=== PATIENT | male | born 1940 | race Caucasian/White ===

== ENCOUNTER 2016-12-31 15:41 | Inpatient (IN) | payer OTHER ==
[~2016-12-31] VITALS: Ht 170.2 cm; Wt 84.9 kg
[~2016-12-31 15:41] MED LIST: ACCUPRIL20 MG PO; ALBUTEROL IN200 PUFF INH; ATROVENT2.5 ML NEB; AUGMENTIN 875-1 EACH PO; AZELASTINE205.5 MCG/ NS; CEFDINIR300 MG PO; CHILDRENS CHEWA81 MG PO; CLARITIN10 MG PO; MILLIPRED5 MG PO; NEURONTIN100 MG PO; NORVASC10 MG PO; PLETAL100 MG PO; PRILOSEC20 MG PO; PRILOSEC40 MG PO; PRINIVIL20 MG PO; PROZAC40 MG PO; SINGULAIR10 MG PO; SPIRIVA18 MCG INH; SYMBICORT 16010.2 GM INH; THEO-24200 MG PO; THEOPHYLLINE C300 MG PO; TYLENOL325 M1 PO; VALIUM5 MG PO; XOPENEX0.63 MG/3 NEB; ZITHROMAX250 MG PO; ZOCOR10 MG PO; ZYRTEC10 MG PO; [UNRECOGNIZED DRUG - OTHER] PO
[2016-12-31 16:56] LABS: ARTERIAL BLD GAS O2 SATURATION 94.7 % (94-98); ARTERIAL BLOOD GAS BASE EXCESS 8.6 mmol/L (-2.0-3.0); ARTERIAL BLOOD GAS HCO3 33.5 mmol/L (22-26); ARTERIAL BLOOD GAS pH 7.46 (7.35-7.45)
[2016-12-31 16:57] LABS: BASO % 0.3 % (0.2-1.2); EOS # 0.1 10_X3_uL (0.0-0.5); EOS % 1.3 % (0.8-7.0); GRAN # 6.3 10_X3_uL (1.8-5.4); GRAN % 82.3 % (34.0-67.9); HEMATOCRIT 38.2 % (40-51); HEMOGLOBIN 12.5 g/dL (13.7-17.5); LYMPH # 0.9 10_X3_uL (1.3-3.6); LYMPH % 11.4 % (21.8-53.1); MEAN CORPUSCULAR HEMOGLOBIN 30.3 pg (27.0-33.0); MEAN CORPUSCULAR HGB CONC 32.7 g/dL (32.0-36.0); MEAN CORPUSCULAR VOLUME 92.5 fL (79-92); MEAN PLATELET VOLUME 9.2 fl (7.5-11.5); MONO # 0.4 10_X3_uL (0.3-0.8); MONO % 4.7 % (5.3-12.2); PLATELET COUNT 347 x10_3/uL (163-337); RED BLOOD COUNT 4.13 x10_6/uL (4.6-6.1); RED CELL DISTRIBUTION WIDTH 12.9 % (11.6-14.4); WHITE BLOOD COUNT 7.6 x10_3/uL (4.2-9.1)
[2016-12-31 17:36] LABS: ALBUMIN 3.4 gm/dL (3.4-5.0); ALKALINE PHOSPHATASE 55 U/L (50-136); ALT/SGPT 9 U/L (7.53-40.17); AMYLASE 38 U/L (15.62-74.58); AST/SGOT 17 U/L (6.66-35.34); BILIRUBIN,TOTAL 0.22 mg/dL (0.0-1.0); CALCIUM 8.8 mg/dL (8.7-10.7); CARBON DIOXIDE 33 mmol/L (21-32); CREATININE 0.6 mg/dL (0.6-1.3); GLUCOSE,RANDOM 108 mg/dL (70-99); LIPASE 12 U/L (6.75-60.75); MAGNESIUM 1.8 mg/dL (1.8-2.4); POTASSIUM 3.2 mmol/L (3.5-5.1); SODIUM 139 mmol/L (136-145)
[2016-12-31 17:37] LABS: BLOOD UREA NITROGEN 6 mg/dL (7-18)
[2017-01-01 06:50] LABS: HEMATOCRIT 36.5 % (40-51); HEMOGLOBIN 11.8 g/dL (13.7-17.5); MEAN CORPUSCULAR HEMOGLOBIN 29.9 pg (27.0-33.0); MEAN CORPUSCULAR HGB CONC 32.3 g/dL (32.0-36.0); MEAN CORPUSCULAR VOLUME 92.4 fL (79-92); MEAN PLATELET VOLUME 9.3 fl (7.5-11.5); RED BLOOD COUNT 3.95 x10_6/uL (4.6-6.1); RED CELL DISTRIBUTION WIDTH 12.6 % (11.6-14.4); WHITE BLOOD COUNT 3.5 x10_3/uL (4.2-9.1)
[2017-01-01 07:24] LABS: BLOOD UREA NITROGEN 6 mg/dL (7-18); CALCIUM 8.6 mg/dL (8.7-10.7); CARBON DIOXIDE 32 mmol/L (21-32); CREATININE 0.6 mg/dL (0.6-1.3); GLUCOSE,RANDOM 147 mg/dL (70-99); MAGNESIUM 1.9 mg/dL (1.8-2.4); POTASSIUM 4.4 mmol/L (3.5-5.1); SODIUM 140 mmol/L (136-145)
[2017-01-02 07:29] LABS: HEMATOCRIT 36.8 % (40-51); HEMOGLOBIN 11.8 g/dL (13.7-17.5); MEAN CORPUSCULAR HEMOGLOBIN 29.7 pg (27.0-33.0); MEAN CORPUSCULAR HGB CONC 32.1 g/dL (32.0-36.0); MEAN CORPUSCULAR VOLUME 92.7 fL (79-92); MEAN PLATELET VOLUME 9.1 fl (7.5-11.5); RED BLOOD COUNT 3.97 x10_6/uL (4.6-6.1); RED CELL DISTRIBUTION WIDTH 12.7 % (11.6-14.4); WHITE BLOOD COUNT 8.2 x10_3/uL (4.2-9.1)
[2017-01-02 07:44] LABS: ALBUMIN 3.4 gm/dL (3.4-5.0); ALKALINE PHOSPHATASE 46 U/L (50-136); ALT/SGPT 8 U/L (7.53-40.17); AST/SGOT 15 U/L (6.66-35.34); BLOOD UREA NITROGEN 10 mg/dL (7-18); CARBON DIOXIDE 32 mmol/L (21-32); CREATININE 0.6 mg/dL (0.6-1.3); GLUCOSE,RANDOM 126 mg/dL (70-99); MAGNESIUM 2.1 mg/dL (1.8-2.4); POTASSIUM 4.2 mmol/L (3.5-5.1); SODIUM 138 mmol/L (136-145); TOTAL PROTEIN 5.6 gm/dL (6.4-8.2)
[2017-01-02 07:49] LABS: BILIRUBIN,TOTAL < 0.15 mg/dL (0.0-1.0)
[2017-01-02 07:53] LABS: FREE T4 0.994 ng/dL (0.93-1.7); THYROID STIMULATING HORMONE 0.88 uIU/mL (0.34-4.82)
[2017-01-03 06:55] LABS: HEMATOCRIT 35.9 % (40-51); HEMOGLOBIN 11.6 g/dL (13.7-17.5); MEAN CORPUSCULAR HEMOGLOBIN 30.4 pg (27.0-33.0); MEAN CORPUSCULAR HGB CONC 32.3 g/dL (32.0-36.0); MEAN PLATELET VOLUME 9.5 fl (7.5-11.5); RED BLOOD COUNT 3.82 x10_6/uL (4.6-6.1)
[2017-01-03 07:10] LABS: BLOOD UREA NITROGEN 11 mg/dL (7-18); CALCIUM 8.4 mg/dL (8.7-10.7); CARBON DIOXIDE 31 mmol/L (21-32); CREATININE 0.6 mg/dL (0.6-1.3); GLUCOSE,RANDOM 98 mg/dL (70-99); SODIUM 142 mmol/L (136-145)
[2017-01-04 08:33] LABS: HEMATOCRIT 41.1 % (40-51); MEAN CORPUSCULAR HEMOGLOBIN 29.7 pg (27.0-33.0); MEAN CORPUSCULAR HGB CONC 31.6 g/dL (32.0-36.0); MEAN CORPUSCULAR VOLUME 94.1 fL (79-92); MEAN PLATELET VOLUME 9.1 fl (7.5-11.5); RED BLOOD COUNT 4.37 x10_6/uL (4.6-6.1); RED CELL DISTRIBUTION WIDTH 13.1 % (11.6-14.4)
[2017-01-04 08:45] LABS: BLOOD UREA NITROGEN 10 mg/dL (7-18); CALCIUM 8.6 mg/dL (8.7-10.7); CARBON DIOXIDE 33 mmol/L (21-32); CREATININE 0.5 mg/dL (0.6-1.3); GLUCOSE,RANDOM 91 mg/dL (70-99); POTASSIUM 4.1 mmol/L (3.5-5.1); SODIUM 142 mmol/L (136-145)
[2017-01-05 07:44] LABS: HEMATOCRIT 39.5 % (40-51); HEMOGLOBIN 12.6 g/dL (13.7-17.5); MEAN CORPUSCULAR HEMOGLOBIN 29.9 pg (27.0-33.0); MEAN CORPUSCULAR HGB CONC 31.9 g/dL (32.0-36.0); MEAN CORPUSCULAR VOLUME 93.6 fL (79-92); MEAN PLATELET VOLUME 9.4 fl (7.5-11.5); RED BLOOD COUNT 4.22 x10_6/uL (4.6-6.1); RED CELL DISTRIBUTION WIDTH 12.8 % (11.6-14.4); WHITE BLOOD COUNT 6.2 x10_3/uL (4.2-9.1)
[2017-01-05 07:52] LABS: BLOOD UREA NITROGEN 8 mg/dL (7-18); CALCIUM 8.7 mg/dL (8.7-10.7); CARBON DIOXIDE 34 mmol/L (21-32); CREATININE < 0.5 mg/dL (0.6-1.3); GLUCOSE,RANDOM 139 mg/dL (70-99); MAGNESIUM 2.4 mg/dL (1.8-2.4); POTASSIUM 4.3 mmol/L (3.5-5.1); SODIUM 141 mmol/L (136-145)
== END 2017-01-05 14:25 | disposition home or self-care (01) | DRG 391 ==
LOC: MS 15:41
PROVIDERS: ADMIT Family Medicine
PROC: 0DBP8ZX Excision of Rectum, Via Natural or Artificial Opening Endoscopic, Diagnostic (ICD-10-PCS; principal; 2017-01-05)
PROC: 0DBM8ZX Excision of Descending Colon, Via Natural or Artificial Opening Endoscopic, Diagnostic (ICD-10-PCS; 2017-01-05)
DX: K52.9 Noninfective gastroenteritis and colitis, unspecified (principal); J96.91 Respiratory failure, unspecified with hypoxia; J44.1 Chronic obstructive pulmonary disease with (acute) exacerbation; R10.9 Unspecified abdominal pain; N32.9 Bladder disorder, unspecified; D64.9 Anemia, unspecified; R19.5 Other fecal abnormalities; R79.89 Other specified abnormal findings of blood chemistry; E87.6 Hypokalemia; K57.90 Diverticulosis of intestine, part unspecified, without perforation or abscess without bleeding; I25.10 Atherosclerotic heart disease of native coronary artery without angina pectoris; I10 Essential (primary) hypertension; I50.9 Heart failure, unspecified; I73.9 Peripheral vascular disease, unspecified; K21.9 Gastro-esophageal reflux disease without esophagitis; D12.4 Benign neoplasm of descending colon; K62.1 Rectal polyp; Z88.8 Allergy status to other drugs, medicaments and biological substances; Z79.899 Other long term (current) drug therapy; Z79.82 Long term (current) use of aspirin; Z87.891 Personal history of nicotine dependence; Z95.5 Presence of coronary angioplasty implant and graft
CPT/HCPCS: 36415; 36600; 45380; 45385; 71020; 71260; 80048; 80053; 80061; 80198; 82150; 82803; 83036; 83690; 83735; 84439; 84443; 85025; 86738; 87040; 87045; 87070; 87205; 87324; 87338; 87449; 94640; 99070; G0328-QW; J2704; J2930

== ENCOUNTER 2016-12-31 15:41 | Observation (INO) | payer OTHER | END 2017-01-02 12:20 | disposition other institution (70) | LOC: MS 15:41 | PROVIDERS: ADMIT Family Medicine | DX: K52.9 Noninfective gastroenteritis and colitis, unspecified (principal); J96.91 Respiratory failure, unspecified with hypoxia; J44.1 Chronic obstructive pulmonary disease with (acute) exacerbation; R10.9 Unspecified abdominal pain; N32.9 Bladder disorder, unspecified; D64.9 Anemia, unspecified; R19.5 Other fecal abnormalities; R79.89 Other specified abnormal findings of blood chemistry; E87.6 Hypokalemia; K57.90 Diverticulosis of intestine, part unspecified, without perforation or abscess without bleeding; I25.10 Atherosclerotic heart disease of native coronary artery without angina pectoris; I10 Essential (primary) hypertension; I50.9 Heart failure, unspecified; I73.9 Peripheral vascular disease, unspecified; K21.9 Gastro-esophageal reflux disease without esophagitis; D12.4 Benign neoplasm of descending colon; K62.1 Rectal polyp; Z88.8 Allergy status to other drugs, medicaments and biological substances; Z79.899 Other long term (current) drug therapy; Z79.82 Long term (current) use of aspirin; Z87.891 Personal history of nicotine dependence; Z95.5 Presence of coronary angioplasty implant and graft | CPT/HCPCS: 36415; 36600; 71020; 71260; 80048; 80053; 80061; 80198; 82150; 82803; 83690; 83735; 84443; 85025; 86738; 87040; 87045; 87205; 87324; 87338; 87449; 94640; 96365; 96366; 96367; 96372; 96375; 96376; 99070; G0328-QW; G0378; J2930 ==